=== PATIENT | female | born 1975 | race Caucasian/White ===

== ENCOUNTER → 2020-12-30 13:35 | Outpatient (CLI) | payer OTHER, MEDICAID, SELFPAY ==
[2020-12-30 15:00] LABS: COVID19 -Nasal RAPID Negative (Negative)
== END ==
PROVIDERS: Family Provider Naturopath; PCP Naturopath; Visit Provider Obstetrics & Gynecology
DX: Z20.822 Contact with and (suspected) exposure to COVID-19 (principal); Z01.812 Encounter for preprocedural laboratory examination
CPT/HCPCS: 87635; C9803

== ENCOUNTER 2020-12-31 06:46 | Day surgery (SDC) | payer OTHER, MEDICAID, SELFPAY ==
[2020-12-14 07:49] VITALS: BMI 29.3
--- NOTE | 2020-12-31 | PATH_ITS ---
[facility] Accession Number: [id number] . 01 Material submitted: . endometrium - ENDOMETRIAL CURETTINGS . 02 Diagnosis: Endometrial Curettings: Portions of dys-synchronous endometrium; negative for glandular hyperplasia, cytologic atypia, or malignancy. Scant myometrial tissue; negative for atypia or malignancy. MRV 01/04/2021 1504 Local . 02 Electronically signed: . Whit Castro MD, Pathologist NPI- [id number] . 01 Gross description: . ENDOMETRIAL CURETTINGS: Received in formalin are minute fragments of mucoid and hemorrhagic material measuring 3.0 x 2.6 x 0.5 cm in aggregate. Submitted in toto in 1 cassette. /CAITIE 01/01/2021 0215 Local . 02 Pathologist provided ICD-10: N94.89 . 02 CPT . 894513 Performed at: 01 [facility] [address], [place], [place] [id number] MD Jovi Ruth MD Phone: [phone] Performed at: [address] [facility] [address] [place], [place] [id number] MD Neha Huston MD Phone: [phone]
[2020-12-31 07:07] VITALS: BP 111/76; PULSE 72; RESP 12; TEMP 36.3; O2SAT 99
[2020-12-31 07:10] VITALS: BMI 29.3
[2020-12-31] MEDS: ACETAMINOPHEN 325 MG TABLET 975 MG PO (07:29)
[2020-12-31] MEDS: LACTATED RINGERS 1,000 ML 100 ML IV (07:29)
--- NOTE | 2020-12-31 07:38 | PM.HP.1 ---
History of Present Illness History of Present Illness Date Patient Seen: 12/31/20 Time Patient Seen: 07:38 Chief complaint: HYSTEROSCOPY D&C RESECTION OF MASS Narrative: Patient is a 45-year-old 2 para 2 who presents for a D&C hysteroscopy and possible polypectomy. This is being done due to menorrhagia and an endometrial mass seen on ultrasound. Patient History Medical History (Updated 12/28/20 @ 07:15 by Allie Pop MD) Colon cancer Surgical History (Updated 12/14/20 @ 07:55 by Yelena Chan RN) History of section (2007) History of surgery Status post hysteroscopic resection of uterine septum (12/23/08) Family & Social History Social History: household members spouse Tobacco & Substance use: Smoking Status Former smoker alcohol intake current alcohol intake frequency a few times a week Substance Use Type does not use Meds Home Medications and Allergies Home Medications Medication Instructions Recorded Confirmed Type fluoxetine 20 mg capsule 20 mg PO DAILY 11/04/20 12/31/20 History Allergies Allergy/AdvReac Type Severity Reaction Status Date / Time erythromycin base Allergy Intermediate Verified 12/31/20 07:06 Exam Vital Signs (past 8 hours): - 12/31/20 07:07 Temperature 97.4 F L Pulse Rate 72 Respiratory Rate 12 Blood Pressure 111/76 Pulse Oximetry 99 Oxygen Delivery Method Room Air Narrative Exam Narrative: HEENT: No thyromegaly, no anterior cervical or supraclavicular lymphadenopathy. Lungs:Clear to auscultation bilaterally, no wheezes. Cardiovascular: Regular rate and rhythm, no murmurs, rubs, or gallops. Abdomen: Well-healed Pfannenstiel scars. No hepatosplenomegaly. No masses palpable. External genitalia: Normal Vagina: Normal Cervix: Normal Bimanual exam: 7 Week size anteverted uterus. Mobile. Assessment & Plan Assessment & Plan narrative: Assessment: 45-year-old 2 para 2 with menorrhagia and an endometrial mass consistent with an endometrial polyp Plan: D&C hysteroscopy and polypectomy The risks, benefits, and alternatives to the procedure were explained to the patient. The risks including bleeding, infection, and uterine perforation. She understands these risks and agrees to proceed. A full par Q was held and consent form was signed. COVID-19 COVID-19 status: Negative Result date/Date tested (Pos, Neg/Pending): 12/30/20 Time Spent With Patient Critical Care time: I spent a total of [] minutes of critical care time on this patient's care today; this time is exclusive of procedural time.
--- NOTE | 2020-12-31 07:40 | PM.PREOP ---
Pre-operative Note COVID-19 COVID-19 status: Negative Result date/Date tested (Pos, Neg/Pending): 12/30/20 Interval Note History & Physical reviewed/Exam performed by Physician: Yes Changes to H&P: No H&P completed within 30 days and has changed as indicated here:: 12/31/20
--- NOTE | 2020-12-31 08:12 | SUR.OPER ---
Lithotomy on padded OR bed, head on pillow, arms secured on padded arm boards at <90 degrees abduction. Legs secured in padded yellow fins stirrups.
--- NOTE | 2020-12-31 08:18 | P.OP_ITS ---
Operative Date/Time/Diagnoses Date of procedure: 12/31/20 Time of procedure: 08:19 Pre-op diagnosis: Abnormal uterine bleeding Endometrial mass Post-op diagnosis: same Procedure & Clinicians Procedure: Procedures Operation Date: 12/31/20 07:45 Actual Procedure Side Surgeon p Hysteroscopy D&C Allie Pop MD Indications: Abnormal uterine bleeding Endometrial mass by ultrasound Surgeon: Allie Pop Anesthesia Type: General (LMA) Operative Notes Findings: Eight week size anteverted uterus Septum that extends from the fundus almost down to the top of the cervix Both fallopian tube ostia observed No polyp or fibroids Thickened endometrial lining Closure Type: not applicable Specimen(s): endometrial curettings Estimated blood loss (mL): 15 Blood products transfused: none Procedure in detail: After informed consent was obtained, the patient was taken to the operating room where she was placed in the dorsal supine position. After adequate LMA general anesthesia was achieved, she was placed in the dorsal lithotomy position, and prepped and draped in the usual sterile fashion. A time-out was performed. A bivalve speculum was placed into the vagina and the anterior lip of the cervix was grasped with a single-tooth tenaculum. The cervical os was sequentially dilated until the hysteroscope could pass easily into the endometrial cavity. This was dilated to the # 9 Hegar dilator. The hysteroscope passed easily into the endometrial cavity. There was a septum which came down to almost the top of the cervix. The scope could be maneuvered into each horn of the uterus and fallopian tube ostia were observed. The hyst eroscope was removed. Sharp curettage was performed on both sides of the septum. The instruments were removed from the uterus. The single-tooth tenaculum was removed from the anterior lip of the cervix. The bivalve speculum was removed from the vagina. Sponge, lap, and instrument counts were correct x2. The patient tolerated the procedure well, and was taken to PACU in stable condition. Complications: none Post-operative Condition: stable Plan for aftercare: Home after recovery
[2020-12-31 08:24] VITALS: BP 132/72; PULSE 62; RESP 12; TEMP 36.4; O2SAT 99
[2020-12-31 08:36] VITALS: BP 114/72; PULSE 62; RESP 16; O2SAT 98
[2020-12-31 08:38] VITALS: BP 118/75; PULSE 57; RESP 17; O2SAT 98
[2020-12-31 08:39] VITALS: BP 112/77; PULSE 59; RESP 17; TEMP 36.8
[2020-12-31 09:20] VITALS: BP 113/69; PULSE 66; RESP 16; TEMP 36.8; O2SAT 99
--- NOTE | 2020-12-31 11:19 | SUR.PHASEII ---
Late entry: d/c med teaching done along with surgical teaching, pt denied need for pain meds and was aware when next doses were due. Left unit in stable condition.
== END 2020-12-31 09:30 | disposition home or self-care (01) ==
PROVIDERS: Family Provider Naturopath; PCP Naturopath; Referring Provider Obstetrics & Gynecology; Visit Provider Obstetrics & Gynecology
PROC: 0UDB8ZZ Extraction of Endometrium, Via Natural or Artificial Opening Endoscopic (ICD-10-PCS; CPT 58558; principal; 2020-12-31 07:45)
DX: N94.89 Other specified conditions associated with female genital organs and menstrual cycle (principal); N93.9 Abnormal uterine and vaginal bleeding, unspecified; R93.89 Abnormal findings on diagnostic imaging of other specified body structures
CPT/HCPCS: 58558; J1100; J1885; J2250; J2405; J2704; J3010

== ENCOUNTER → 2021-09-29 16:22 | Outpatient (CLI) | payer OTHER, MEDICAID, SELFPAY ==
[2021-09-29 17:29] LABS: COVID19 -Nasal RAPID Negative (Negative)
== END ==
PROVIDERS: Family Provider Naturopath; PCP Naturopath; Visit Provider Obstetrics & Gynecology
DX: Z20.822 Contact with and (suspected) exposure to COVID-19 (principal); Z01.812 Encounter for preprocedural laboratory examination
CPT/HCPCS: 87635; C9803

== ENCOUNTER 2021-09-30 08:49 | Day surgery (SDC) | payer OTHER, MEDICAID, SELFPAY ==
[2021-09-28 13:41] VITALS: BMI 29.3
[2021-09-30] VITALS (8 sets, daily range): BP systolic 113–133; BP diastolic 76–88; PULSE 63–97; RESP 12–20; TEMP 36.1–37.1; O2SAT 95–100; BMI 29.3
--- NOTE | 2021-09-30 | PATH_ITS ---
[facility] Accession Number: [id number] . 01 Material submitted: . endometrium - ENDOMETRIAL CURRETTINGS . 01 Clinical history: . SDC EXCESSIVE AND FREQUENT MENSTRUATION . 01 Diagnosis: Endometrium, Curettage: Early secretory phase endometrium. Negative for atypical hyperplasia and malignancy. MRV 10/06/2021 1525 Local . 01 Electronically signed: . Deann Villavicencio MD, Pathologist NPI- [id number] . 01 Gross description: . ENDOMETRIAL CURRETTINGS: Received in formalin are minute fragments of mucoid and hemorrhagic material measuring 1.8 x 1.2 x 0.1 cm in aggregate. Submitted in toto in 1 cassette. /CPE 10/01/2021 0743 Local . 01 Pathologist provided ICD-10: N92.0 . 01 CPT . 326591 Specimen Comment: A courtesy copy of this report has been sent to [phone] Performed at: 01 [facility] [address] [place] [address] Suite [facility], [place], [place] [id number] MD Jovi Ruth MD Phone: [phone]
[2021-09-30] MEDS: LACTATED RINGERS 1,000 ML 100 ML IV (09:33)
--- NOTE | 2021-09-30 10:17 | PM.HP.1 ---
History of Present Illness History of Present Illness Date Patient Seen: 09/30/21 Time Patient Seen: 10:17 Chief complaint: SDC Narrative: Patient is a 46-year-old 2 para 2 presents for a D&C and a NovaSure endometrial ablation. This is being done due to heavy vaginal bleeding. Patient History Medical History (Updated 12/28/20 @ 07:15 by Allie Pop MD) Colon cancer Surgical History (Updated 09/28/21 @ 13:47 by Yelena Chan RN) History of section (2007) History of hysteroscopy (12/31/20) History of surgery Status post hysteroscopic resection of uterine septum (12/23/08) Family & Social History Social History: household members spouse Tobacco & Substance use: Smoking Status Former smoker alcohol intake current alcohol intake frequency a few times a week Substance Use Type does not use Meds Home Medications and Allergies Allergies Allergy/AdvReac Type Severity Reaction Status Date / Time erythromycin base Allergy Intermediate Verified 09/30/21 09:02 Exam Vital Signs (past 8 hours): - 09/30/21 09:17 Temperature 98.7 F Pulse Rate 67 Respiratory Rate 16 Blood Pressure 113/80 Pulse Oximetry 98 Oxygen Delivery Method Room Air Oxygen Delivery Method Room Air Narrative Exam Narrative: HEENT: No thyromegaly, no anterior cervical or supraclavicular lymphadenopathy. Lungs:Clear to auscultation bilaterally, no wheezes. Cardiovascular: Regular rate and rhythm, no murmurs, rubs, or gallops. Abdomen: Well-healed Pfannenstiel scars. No hepatosplenomegaly. No masses palpable. External genitalia: Normal Vagina: Normal Cervix: Normal Bimanual exam: 7 Week size uterus. Mobile. Rectal: No masses. Assessment & Plan Assessment and plan (1) Abnormal uterine bleeding: Status: Acute Plan: Assessment: 46-year-old 2 para 2 with menorrhagia Plan: D&C, NovaSure endometrial ablation The risks, benefits, and alternatives to the procedure were explained to the patient. The risks including bleeding, infection, and uterine perforation. She understands these risks and agrees to proceed. A full par Q was held and consent form was signed. COVID-19 COVID-19 status: Negative Result date/Date tested (Pos, Neg/Pending): 09/29/21 Time Spent With Patient Time with patient: less than 30 minutes Critical Care time: I spent a total of [] minutes of critical care time on this patient's care today; this time is exclusive of procedural time.
--- NOTE | 2021-09-30 10:20 | PM.PREOP ---
Pre-operative Note COVID-19 COVID-19 status: Negative Result date/Date tested (Pos, Neg/Pending): 09/29/21 Criteria for continued procedure: Non-surgical alternatives not available or appropriate per current SOC Interval Note History & Physical reviewed/Exam performed by Physician: Yes Changes to H&P: No H&P completed within 30 days and has changed as indicated here:: 09/30/21
--- NOTE | 2021-09-30 10:59 | SUR.OPER ---
Lithotomy on padded OR bed, head on pillow, arms secured on padded arm boards at <90 degrees abduction. Legs secured in padded yellow fins stirrups.
--- NOTE | 2021-09-30 11:01 | PM.GYNOP.1 ---
Operative Date/Time/Diagnoses Date of procedure: 09/30/21 Time of procedure: 11:01 Pre-op diagnosis: Menorrhagia Post-op diagnosis: same Procedure & Clinicians Procedure: Procedures Operation Date: 09/30/21 10:15 Actual Procedure Side Surgeon shawna D&C Hysteroscopy w/ Novasure Endometrial Ablation Allie Pop MD Indications: Menorrhagia Surgeon: Allie Pop Anesthesia Type: General (LMA) Operative Notes Findings: 7 wk size anteverted uterus Closure Type: not applicable Specimen(s): endometrial curettings Estimated blood loss (mL): 10 Blood products transfused: none Procedure in detail: After informed consent was obtained, the patient was taken to the operating room where she was placed in the dorsal supine position. After adequate LMA general anesthesia was achieved, she was placed in the dorsal lithotomy position, and prepped and draped in the usual sterile fashion. A time-out was performed. A bivalve speculum was placed into the vagina and the anterior lip of the cervix was grasped with a single-tooth tenaculum. The cervical os was sequentially dilated to the # 8 Hegar dilator. Sharp curettage was performed yielding a large amount of endometrial curettings. The uterus was sounded from the internal os to the fundus and measured 4 cm. This was set on the NovaSure catheter and the generator. The NovaSure catheter passed easily into the endometrial cavity and was opened. The width was 4.0 cm. This indicated a power of 88 w. The cervix was capped, the cavity assessment was performed and passed. The cycle was initiated and lasted 1 minute and 55 seconds. The catheter was closed, the cervix was uncapped, the catheter was removed from the uterus. The single-tooth tenaculum was removed from the anterior lip of the cervix. The bivalve speculum was removed from the vagina. Sponge, lap, and instrument counts were correct x2. The patient tolerated the procedure well, was taken to PACU in stable condition. Complications: none Post-operative Condition: stable Disposition: PACU Plan for aftercare: Home after recovery
[2021-09-30] MEDS: HYDROCODONE/ACET 5/325 TABLET 1 TAB PO (11:05)
[2021-09-30] MEDS: fentaNYL 100 MCG/2 ML INJ IV (11:05)
--- NOTE | 2021-09-30 11:58 | SUR.PHASEII ---
Discharge instructions reviewed with patient with time allowed for questions. Small amt of drainage noted on mac-pad. Pt reports pain as tolerable cramping that will take ibuprofen when gets home. IV D/C'd intact, dressing applied. Pt left unit A&Ox4 via w/c to ER exit to meet spouse who will transport pt home.
== END 2021-09-30 11:57 | disposition home or self-care (01) ==
PROVIDERS: Family Provider Naturopath; PCP Naturopath; Referring Provider Obstetrics & Gynecology; Visit Provider Obstetrics & Gynecology
PROC: 0U5B8ZZ Destruction of Endometrium, Via Natural or Artificial Opening Endoscopic (ICD-10-PCS; CPT 58563; principal; 2021-09-30 10:15)
DX: N92.0 Excessive and frequent menstruation with regular cycle (principal)
CPT/HCPCS: 58563; 81025; J1100; J1885; J2250; J2405; J2704; J3010